=== PATIENT | female | born 1960 | race Asian ===

== ENCOUNTER 2023-02-23 05:51 | Emergency (ER) | payer OTHER ==
[~2023-02-23] VITALS: Ht 149.9 cm; Wt 49.9 kg
[2023-02-23] MEDS ORDERED: MORPHINE 4 MG SYG IVP ONE (06:30)
[2023-02-23] MEDS ORDERED: ONDANSETRON 4MG INJ IVP ONE (06:30)
[2023-02-23 06:48] LABS: BASOPHILS # (AUTO) 0.02 K/uL (0.00-0.20); BASOPHILS % (AUTO) 0.2 % (0.0-5.0); EOSINOPHILS # (AUTO) 0.04 K/uL (0.00-0.70); EOSINOPHILS % (AUTO) 0.5 % (0.0-8.0); HEMATOCRIT 40.2 % (36-48); IMMATURE GRANULOCYTE ABSOLUTE 0.05 K/uL (0-1); LYMPHOCYTES # (AUTO) 1.6 K/uL (1.0-4.8); LYMPHOCYTES % (AUTO) 19.5 % (21.0-51.0); MEAN CORPUSCULAR HEMOGLOBIN 30.5 pg (27.0-33.0); MEAN CORPUSCULAR HGB CONC 33.1 g/dL (32.0-36.0); MEAN CORPUSCULAR VOLUME 92.2 fL (79-99); MONOCYTES # (AUTO) 0.4 K/uL (0.1-1.0); MONOCYTES % (AUTO) 4.9 % (3.0-13.0); NEUTROPHILS # (AUTO) 6.1 K/uL (1.8-7.7); NEUTROPHILS % (AUTO) 74.3 % (40.0-77.0); PLATELET COUNT (AUTO) 84 K/uL (130-400); RED BLOOD CELL COUNT(AUTO) 4.36 MIL/uL (4.00-5.50); RED CELL DISTRIBUTION WIDTH 14.8 % (11.0-15.5); WHITE BLOOD COUNT (AUTO) 8.2 K/uL (4.8-10.8)
[2023-02-23 07:00] LABS: SARS-CoV-2, RNA, NAAT NEGATIVE SARS CoV-2 (NEGATIVE)
[2023-02-23 07:01] LABS: ALBUMIN 2.6 g/dL (3.5-5.0); BILIRUBIN,TOTAL 0.4 mg/dL (0.2-1.0); CREATININE 0.7 mg/dL (0.5-1.5); MAGNESIUM 1.9 mg/dL (1.80-2.40); TOTAL PROTEIN, SERUM 5.4 g/dL (6.0-8.3)
[2023-02-23 07:04] LABS: INFLUENZA TYPE A Negative For Type A (NEGATIVE); INFLUENZA TYPE B Negative For Type B (NEGATIVE)
[2023-02-23] MEDS ORDERED: LEVO88CA4 PO (07:13)
[2023-02-23] MEDS ORDERED: OSIM40TA PO (07:19)
[2023-02-23] MEDS ORDERED: AMLO-258 PO (07:19)
[2023-02-23] MEDS ORDERED: BENZ-226 PO (07:19)
[2023-02-23] MEDS ORDERED: CRAN250T2 PO (07:19)
[2023-02-23] MEDS ORDERED: DULO20CA18 PO (07:19)
[2023-02-23] MEDS ORDERED: LOPE2TAB26 PO (07:19)
[2023-02-23 07:26] LABS: B-TYPE NATRIURETIC PEPTIDE 76 pg/mL (0-100)
[2023-02-23] MEDS ORDERED: 0.9%NACL 1000ML 1,000 ML IV ONE (08:30)
[2023-02-23 10:32] LABS: BILIRUBIN,URINE NEGATIVE (NEGATIVE); COLOR,URINE LIGHT-YELLOW (YELLOW); GLUCOSE, URINE (UA) NEGATIVE (NEGATIVE); KETONES,URINE NEGATIVE (NEGATIVE); LEUKOCYTE ESTERASE ,URINE 75 Leu/uL (NEGATIVE); NITRATE,URINE NEGATIVE (NEGATIVE); OCCULT BLOOD,URINE MODERATE (NEGATIVE); PROTEIN,URINE 300 mg/dL (NEGATIVE); UROBILINOGEN,URINE 0.2 mg/dL (0.2-1.0)
[2023-02-23 10:33] LABS: ADD UA MICROSCOPIC YES; APPEARANCE,URINE HAZY (CLEAR)
[2023-02-23 10:35] LABS: BACTERIA,URINE RARE /HPF (None Seen); MUCUS,URINE RARE LPF (None Seen); SQUAMOUS EPITHELIAL CELL,UR FEW /HPF (0-2)
[2023-02-23 12:13] VITALS: BP 112/74; PULSE 72; RESP 18; O2SAT 99
[2023-02-23] MEDS ORDERED: MORP1SYR2 IV (12:43)
[2023-02-23] MEDS ORDERED: MORPHINE 2 MG SYG IVP PRN (13:00)
[2023-02-23] MEDS ORDERED: ONDANSETRON 4MG INJ IVP PRN (13:00)
[2023-02-23] MEDS ORDERED: CEFTRIAXONE 1G VIAL IVPB ONE (15:30)
[2023-02-23] MEDS ORDERED: MACR100 PO (15:35)
== END 2023-02-23 16:26 | disposition home or self-care (01) ==
LOC: EDH 05:51
DX: N30.00 Acute cystitis without hematuria (principal); R10.10 Upper abdominal pain, unspecified; R19.7 Diarrhea, unspecified; E11.9 Type 2 diabetes mellitus without complications; E78.00 Pure hypercholesterolemia, unspecified; I10 Essential (primary) hypertension; Z85.118 Personal history of other malignant neoplasm of bronchus and lung; Z20.822 Contact with and (suspected) exposure to COVID-19
CPT/HCPCS: 99285; 74176; 96374; 76705; 71045; 87635; 96375; 82550; 83735; 84484; 80053; 83880; 83690; 85025; 87088; 87804 ×2; 83605 ×2; 81001; 36415; 96376; 93005; C9803; J2270 ×2; J2405 ×2

== ENCOUNTER 2024-04-18 10:36 | Emergency (ER) | payer OTHER ==
[~2024-04-18] VITALS: Ht 157.5 cm; Wt 50.3 kg
[~2024-04-18 10:36] MED LIST: AMLO-258 PO; BENZ-226 PO; CRAN250T2 PO; DULO20CA18 PO; LEVO88CA4 PO; LOPE2TAB26 PO; MACR100 PO; MORP1SYR2 IV; OSIM40TA PO
--- NOTE | 2024-04-18 11:19 | ERN ---
General Chief Complaint: Cough Stated Complaint: MULTIPLE COMPLAINTS Time Seen by MD: 10:37 Source: patient History of Present Illness Initial Comments Patient is a 64-year-old female coming in to be evaluated for cough. Per patient and family member. Cough has been ongoing for three days. Patient does have a history of lung transplant and recently got a CT of the chest. She states that the cough has improved since it initially started but is here for further evaluation she was away. Allergies: Coded Allergies: No Known Allergies (Unverified Allergy, Unknown, 02/23/23) Home Meds Active Scripts Nitrofurantoin/Nitrofuran Mac (Macrobid) 100 Mg Cap, 1 CAP PO BID for 7 Days, #14 CAP 0 Refills Prov:RANDY VORA MD 02/23/23 Reported Medications Morphine Sulfate/Pf (Morphine 1 mg/2 ml Syringe) 1 Mg/2 Ml Syringe, 2 MG IV Q4PRN PRN for PAIN LEVEL 6 TO 10, SYRINGE 02/23/23 Cranberry Fruit Concentrate (Azo Cranberry) 250 Mg Tab.chew, 250 MG PO Q4HPRN PRN for ABDOMINAL PAIN, TAB.CHEW 02/23/23 Loperamide HCl (Loperamide) 2 Mg Tablet, 2 MG PO Q6HPRN PRN for DIARRHEA, TAB 02/23/23 Osimertinib Mesylate (Tagrisso) 40 Mg Tablet, 40 MG PO AM, TAB 02/23/23 Duloxetine HCl (Duloxetine HCl) 20 Mg Capsule.dr, 20 MG PO DAILY, CAP 02/23/23 Amlodipine Besylate (Amlodipine Besylate) 10 Mg Tablet, 10 MG PO DAILY for 30 Days, #30 TAB 0 Refills 02/23/23 Benzonatate (Benzonatate) 100 Mg Capsule, 100 MG PO Q6HPRN PRN for COUGH, CAP 02/23/23 Levothyroxine Sodium (Levothyroxine) 88 Mcg Capsule, 88 MCG PO AM, CAP 02/23/23 Past Medical History Past Medical History: Diabetes-Type II, High Cholesterol, Hypertension, Other Medical History Other: LUNG CANCER Past Surgical History: Other Surgical History Other: RT BREAST ROS Dictation CONSTITUTIONAL: No chills, no fever, no weakness, no diaphoresis, no malaise. HEAD/FACE: No signs of trauma. EENT: No eye pain, no blurred vision, no tearing, no double vision, no ear pain, no ear discharge, no nose pain, no nasal congestion, no throat pain, no throat swelling, no mouth pain. RESPIRATORY: No cough, no orthopnea, no SOB, no stridor, no wheezing. CARDIOVASCULAR: No chest pain, no edema, no palpitations, no syncope. GASTROINTESTINAL/ABDOMINAL: No abdominal pain, no constipation, no diarrhea, no nausea, no vomiting. GENITOURINARY: No abnormal discharge, no dysuria, no frequent urination, no hematuria. No complaints of pain in the genitals. MUSCULOSKELETAL: No back pain, no gout, no joint pain, no joint swelling, no muscle pain, no muscle stiffness, no neck pain. INTEGUMENTARY: No change in color, no change in hair/nails, no dryness, no lesion, no lumps, no rash. NEUROLOGICAL/PSYCH: No anxiety, not depressed, no emotional problem, no headache, no numbness, no pre-existing deficit, no history of seizures, no tremors, no weakness. HEMATOLOGIC/LYMPHATIC: Not anemic, no history of blood clots, no apparent bleeding, no bruising, glands not swollen. All Systems Negative, Except as Noted. Physical Exam Physical Exam Dictation VITAL SIGNS: Reviewed. GENERAL APPEARANCE: Alert, oriented x3, no acute distress, obese. HEAD AND FACE: Non-traumatic. EYES: PERRL, pink conjunctivas, eyelid no trauma, anterior chamber clear. EARS: Pinnas intact and no signs of trauma or erythema. Ear canals clear and no discharge. TMs no erythema. NOSE: No discharge, no bleeding. OROPHARYNX: Mouth normal, teeth no caries, tongue pink. Pharynx clear, no erythema. Tonsils no exudates, no abscesses noted. Mucous membrane moist. NECK: Supple, non-tender, no thyromegaly, no masses, no JVD, no bruits. BREAST: Deferred. CHEST: No tenderness, no crepitus, no paradoxical movement, no retractions. LUNGS: Clear, well-ventilated, symmetric, no rales, no wheezing, no rhonchi, no stridor, good breath sounds bilaterally. HEART: Regular rate, regular rhythm, no murmur, no gallops. VASCULAR: No peripheral edema. ABDOMEN: Soft, positive bowel sounds, nondistended, no guarding, nontender, no rebound, no masses no hepatomegaly, no splenomegaly, no Garcia's sign, no hernias. RECTAL: Deferred. GENITAL: Deferred. NEUROLOGICAL: Normal speech, gross motor function intact, gross sensory function intact. MUSCULOSKELETAL: Neck nontender, full range of motion, back nontender, full range of motion. EXTREMITIES: Nontender, full range of motion. SKIN: Color pink, dry, no turgor, no rash, no lacerations, no abrasions, no contusions. LYMPHATICS: Deferred. Results Laboratory and Microbiology Lab and Micro Result Laboratory Tests Test 04/18/24 11:23 Influenza Type A Antigen Negative For Type A Influenza Type B Antigen Negative For Type B SARS-CoV-2, RNA, NAAT NEGATIVE SARS CoV-2 Labs Reviewed?: Yes EKG/XRAY/US/CT/MRI X-RAY Comment [place] [id number] [address] IMAGING REPORT Signed PATIENT: EDDIE CASTILLO MR#: [id number] : 1960 SEX: F AGE: 64 LOCATION: [facility] ORDER [id number] STATUS: [facility] REPORT#: [id number] SERVICE 111 REASON: cough ORDERING PHYSICIAN: PAN PINO MD PROCEDURE: CXR1VW - CHEST 1VW Exam Type: CHEST 1VW Clinical Information: cough Comparison: None Findings: The lungs exam demonstrates interstitial markings prominence consistent with interstitial pulmonary fibrotic changes. There is no airspace disease to suggest pneumonia. The heart is normal in size. The bone examination shows no significant abnormalities. Impression: Interstitial pulmonary fibrotic changes. No airspace disease. DICTATED BY: CATERINA CASTRO MD DATE: 04/18/24 1144 ELECTRONICALLY SIGNED BY: CATERINA CASTRO MD DATE: 04/18/24 1147 [facility] MDM: Differential diagnosis: URI, chronic fibrosis, lung transplant, Patient is a 64-year-old female coming in to be evaluated for cough. Patient states that the symptoms began three days ago but has been getting better. Chest x-ray did not disclose acute findings swabs are negative for acute finding s. I advised patient appropriate follow up with PCP in 1-2 days. X-ray did disclose pulmonary fibrosis. I advised patient on findings. ED Course Orders Procedure Category Date Status Time Chest 1vw RAD 04/18/24 Resulted 11:16 Covid Rna Naat LAB 04/18/24 Complete 11:16 Influenza Type A & B, LAB 04/18/24 Complete Rapid 11:16 Vital Signs Date Time Temp Pulse Resp B/P (MAP) Pulse Ox O2 Delivery O2 Flow Rate FiO2 04/18/24 11:16 97.0 88 19 125/86 0 Room Air DX & DISP Disposition: Discharge Departure Impression: Primary Impression: URI (upper respiratory infection) Condition: Stable Scripts Loratadine (Loratadine) 10 Mg Tablet 1 TAB PO DAILY for allergy symptoms for 30 Days, #30 TAB 0 Refills Prov: PAN PINO MD 04/18/24 Fluticasone Propionate (Flonase Nasal Dickens) 50 Mcg/Actuation Dickens 2 SPRAY NS DAILY, #16 GM 0 Refills Prov: PAN PINO MD 04/18/24 Additional Instructions: FOLLOW-UP WITH PRIMARY CARE PROVIDER IN 1 TO 2 DAYS. TAKE MEDICATIONS DIRECTED HERE IN THE EMERGENCY ROOM. OKAY TO CONTINUE HOME MEDICATIONS UNLESS OTHERWISE DISCUSSED DURING YOUR VISIT IN THE EMERGENCY ROOM TODAY. RETURN TO YOUR NEAREST EMERGENCY ROOM IF SYMPTOMS WORSEN OR IF THERE IS NO IMPROVEMENT. CALL 911 IF YOU NEED IMMEDIATE ASSISTANCE. TAKE TYLENOL [id number] NEEDED AND IF NO CONTRAINDICATIONS ARE PRESENT. INCREASE ORAL HYDRATION. A WOUND CULTURE OR URINE CULTURE WAS ORDERED HERE IN THE EMERGENCY ROOM DEPARTMENT PLEASE FOLLOW-UP WITH PRIMARY CARE PROVIDER AND ADVISE THEM TO GET REPEAT PORTS FROM OUR FACILITY. IF YOU HAD ANY DORINA WRAP/SPLINTS THAT WERE APPLIED HERE, PLEASE DO NOT REMOVE THEM UNTIL YOU SEE YOUR PRIMARY CARE OR SPECIALTY. Referrals: Referrals: MARY PÉREZ (PCP) Time of Disposition: 12:02 PAN PINO MD Apr 18, 2024 11:19
--- NOTE | 2024-04-18 11:47 | HMCIMG ---
Exam Type: CHEST 1VW Clinical Information: cough Comparison: None Findings: The lungs exam demonstrates interstitial markings prominence consistent with interstitial pulmonary fibrotic changes. There is no airspace disease to suggest pneumonia. The heart is normal in size. The bone examination shows no significant abnormalities. Impression: Interstitial pulmonary fibrotic changes. No airspace disease.
[2024-04-18 11:48] LABS: INFLUENZA TYPE A Negative For Type A (NEGATIVE); INFLUENZA TYPE B Negative For Type B (NEGATIVE)
[2024-04-18 11:52] LABS: SARS-CoV-2, RNA, NAAT NEGATIVE SARS CoV-2 (NEGATIVE)
[2024-04-18] MEDS ORDERED: LORA10TA7 PO (12:03)
[2024-04-18] MEDS ORDERED: FLUT16H NS (12:03)
[2024-04-18 12:50] VITALS: BP 126/65; PULSE 87; RESP 18; TEMP 98.4; O2SAT 96
== END 2024-04-18 12:54 | disposition home or self-care (01) ==
LOC: EDH 10:36
DX: J06.9 Acute upper respiratory infection, unspecified (principal); E11.9 Type 2 diabetes mellitus without complications; E78.00 Pure hypercholesterolemia, unspecified; I10 Essential (primary) hypertension; Z94.2 Lung transplant status; Z20.822 Contact with and (suspected) exposure to COVID-19; Z85.118 Personal history of other malignant neoplasm of bronchus and lung; Z98.890 Other specified postprocedural states; Z79.899 Other long term (current) drug therapy
CPT/HCPCS: 71045; 87635; 87804; 99284